=== PATIENT | female | born 1970 | race Caucasian/White ===

== ENCOUNTER 2025-03-05 18:51 | Emergency (ER) | payer BC ==
[~2025-03-05] VITALS: Ht 157.5 cm; Wt 63.6 kg
[2025-03-05 18:56] VITALS: TEMP 98.4
[2025-03-05 19:36] LABS: PLATELET COUNT (AUTO) 307 K/uL (150-450); RED BLOOD CELL COUNT(AUTO) 4.54 MIL/uL (4.00-5.20); RED CELL DISTRIBUTION WIDTH 14.2 % (11.5-14.5); WHITE BLOOD COUNT (AUTO) 9.2 K/uL (4.5-11.0)
[2025-03-05 19:46] LABS: CALCIUM, TOTAL 9.6 mg/dL (8.8-10.5); CREATININE 0.82 mg/dL (0.60-1.30); GLOMERULAR FILTR. RATE CALC > 60 mL/min (>60); GLUCOSE,RANDOM 113 mg/dL (70-110); SODIUM SERUM 145 mmol/L (136-145); UREA NITROGEN, BLOOD 12 mg/dL (7-18)
[2025-03-05 19:55] LABS: TROPONIN I-HIGH SENSITIVITY 4 ng/L (<51)
[2025-03-05] MEDS: ACETAMINOPHEN 500 MG TABLET PO ONE (22:59)
[2025-03-05] MEDS: IBUPROFEN 400 MG TABLET PO ONE (22:59)
[2025-03-05 23:33] VITALS: BP 139/85; PULSE 67; RESP 18; O2SAT 98
== END 2025-03-06 00:02 | disposition home or self-care (01) ==
LOC: EMS 18:52
DX: R07.1 Chest pain on breathing (principal); R07.81 Pleurodynia
CPT/HCPCS: 71045; 80048; 84484; 85025; 93005; 99285; 36415-L1; 36415-TC